=== PATIENT | male | born 1935 | race Caucasian/White ===

== ENCOUNTER 2018-09-02 09:45 | Inpatient (IN) ==
--- NOTE | 2018-09-01 19:36 | MH ---
cc: Gautam Phillips MD DATE OF ADMISSION: 09/02/2018 DIAGNOSIS: End-stage osteoarthritis of the left hip. PROPOSED SURGERY: Total hip replacement arthroplasty of left hip. HISTORY OF PRESENT ILLNESS: The patient had a right total hip replacement arthroplasty done several years ago for osteoarthritis. He also had a partial knee replacement several years ago and has done very well. The patient came to see me recently with unrelenting pain in the left hip and inability to do activities of daily living and the diagnosis was made. His surgery was scheduled for June, but surgery was canceled because of a mass in his chest. He has since been investigated and had a bronchoscopy and biopsy. He has seen the oncologist. He has lung cancer without metastasis. He, however, has refused any chemotherapy at this point, but is going to consider that once he is over the hip replacement. The patient called the office and indicated that he wanted to proceed with hip replacement to get pain relief, after which we will consider treatment options for his lung cancer. I checked with his primary care physician, Dr. Salcedo, and he has no objection to the contemplated procedure. PAST MEDICAL HISTORY: He has COPD from years of smoking. He does not smoke at this time. He quit several years ago. He has high blood pressure. He is on amlodipine and lisinopril. 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 MEDICATIONS: He also takes meloxicam, multivitamins, vitamin E, fluticasone spray and calcium. The patient's preoperative workup was satisfactory. He is now proceeding with total hip replacement arthroplasty of the left hip. The diagnosis, the treatment, the prognosis, the alternatives and the potential risks as well as the complications have all been discussed in detail. Informed consent has been obtained. No guarantees made. PHYSICAL EXAMINATION: GENERAL: Reveals an 82-year-old white male who looks healthy for his age. MUSCULOSKELETAL: He is a stooped over a little bit because of his severe spondylosis of the lumbar spine. He limps on the left leg. The left leg is painful to move and particularly pain on flexion and attempts to do internal rotation. He has palpable pedal pulses in the left foot and he moves his toes well. HEENT: Head is normocephalic. Pupils are reactive to light. Face symmetrical. NEUROLOGIC: He is alert and oriented. CARDIOVASCULAR: Regular rate and rhythm. No murmurs. LUNGS: Show shallow breath sounds, but no rales or rhonchi. ABDOMEN: Soft and supple. MD KINZA Porter/trey , 06:42 PM , 06:51 PM
[2018-09-02] MEDS ORDERED: Sodium Chlor 0.9% Inj 40 ML, Bupivacaine Liposo PF 1.3% Inj 20 ML, Bupivacaine/Epi PF 0... P-ARTICULR ONE ×6 (10:50→11:53)
[2018-09-02] MEDS ORDERED: Chlorhexidine Gluconate 2% 1 Pack (2 Cloths) TOPICAL ONE (11:00)
[2018-09-02] MEDS ORDERED: Vancomycin Inj 1,000 MG in Sodium Chlor 0.9% Inj 250 ML IV.SIG SCH (11:00)
[2018-09-02] MEDS ORDERED: Sodium Chlor 0.9% Inj 500 ML IV.CONT ONE (11:00)
[2018-09-02] MEDS ORDERED: ceFAZolin 2 GM Premix Inj 2 GM/50 ML PIGGYBACK IV.SIG SCH (11:00)
[2018-09-02] MEDS ORDERED: Metoprolol Tartrate 25 MG Tablet PO ONE (11:00)
[2018-09-02] MEDS ORDERED: Tranexamic Acid Inj 656 MG in Sodium Chlor 0.9% Inj 100 ML IV.SIG SCH ×2 (11:00→14:00)
[2018-09-02] MEDS ORDERED: Morphine Inj 4 MG/ML Vial IV.PUSH PRN (14:50)
[2018-09-02] MEDS ORDERED: Post-op Orders (for Pharmacy) OTHER STA (14:50)
[2018-09-02] MEDS ORDERED: Bisacodyl 10 MG Supp RECTAL PRN (14:50)
[2018-09-02] MEDS ORDERED: Aluminum/Magnesium/Simethacone Susp 30 ML UDC PO PRN (14:50)
[2018-09-02] MEDS ORDERED: Vancomycin Inj 1 GM/200 ML PIGGYBACK IV.SIG SCH (15:00)
[2018-09-02] MEDS ORDERED: fentaNYL Citrate Inj 100 MCG/2 ML Ampul ONE (15:09)
[2018-09-02] MEDS: Sod Chloride 0.9% Inj 1,000 ML IV.CONT SCH (15:15)
--- NOTE | 2018-09-02 15:17 | MP ---
cc: Gautam Phillips MD DATE OF OPERATION: 09/02/2018 PREOPERATIVE DIAGNOSIS: Osteoarthritis, left hip. POSTOPERATIVE DIAGNOSIS: Osteoarthritis, left hip. ADDITIONAL DIAGNOSIS: Recent diagnosis of lung cancer. PROCEDURE: Total hip replacement arthroplasty, left hip, using a Biomet components, cup 56 mm with 3 dome screws, stem 16 mm lateral offset, poly high wall 36 mm, head ceramic 36 mm diameter and -6 neck length. SURGEON: Gautam Phillips MD ANESTHESIA: General. TECHNIQUE: After induction of general anesthesia, the patient was placed in left lateral position supported by hip positioners. Strict lateral position was ascertained. Bony prominences were protected and dependent extremities properly protected. The left hip and left lower extremity thoroughly prepped with alcohol and ChloraPrep and draped in routine fashion. A standard lateral incision was made for posterior approach, deepened through subcutaneous tissue and fascia. The fibers of gluteus bryanna were . Self-retaining retractor introduced. Hip was internally rotated and the piriformis was sectioned as close to the greater tuberosity as possible and the short external rotators and capsule were cut in a single layer and extending superiorly to the acetabulum. These were held with sutures. A Steinmann pin was then introduced through the bone superior to the acetabulum after elevating the gluteus minimus and measurement of the length and offset was carried out prior to dislocating the hip. Femoral neck osteotomy carried out at the proper location. Debridement of the joint was carried out to get good exposure of the acetabulum. The acetabulum was now prepared by deepening it as well as excoriating the dense bone to bleeding bone. A 56 mm was impacted in place in 45 degrees abduction, 20 degrees anteversion. Three dome screws were placed. A high wall liner was impacted and placed with the buildup posterior superior. The femur was prepared following routine technique using a cookie cutter followed by a canal finder and broaches to 60 mm broach. A trial reduction carried out with a -3 head, standard offset and this revealed 6 mm of lengthening and loss of close to 13-14 mm of offset. The hip was, however, stable. Hip was dislocated and a high offset 60 mm stem impacted in place in 20 degrees anteversion. A -6 head was placed over it. A ceramic head and final reduction was carried out. We had good stability and good range of motion. Leg lengthening is only about 2 mm. We lost lateral offset of about 7-8 mm. The wound was irrigated with saline solution, followed by reapproximation of the short external rotators to the corner of the gluteus medius tendon and also through a drill hole in the greater trochanter. Good repair was obtained. The fascia closed with #2 Vicryl and #2 Quill and subcutaneous tissue with 2-0 Vicryl and the skin closed with 3-0 subcuticular Quill and a Prineo dressing. The patient was transferred to the recovery room in satisfactory condition with an abduction pillow. The patient tolerated the procedure well. COMPLICATIONS: None. POSTOPERATIVE CONDITION: Satisfactory. PROGNOSIS: For the hip is good. ESTIMATED BLOOD LOSS: About 350-400 mL. The patient bled a lot from the femoral canal, but it was controlled once the stem was implanted. DRAIN: There was no need for a drain. INJECTABLES: A mixture of Exparel and Marcaine and saline was injected all around the skin flaps and the fascia. MD KINZA Porter/elena , 02:43 PM , 02:52 PM
--- NOTE | 2018-09-02 15:37 | P.CONIM ---
History of Present Illness Primary Care Provider: Marcial Velez MD History of Present Illness: Pt is 82 yo with htn and lung adenoca who is brought to [place] for left THALIA. He is seen in PACU and doing well. He is waking up from Anesthesia and his vitals are stable. he only complains of dry mouth. and some fullness at the surgical site. PMH: right thalia left partial knee htn lung ca. untreated. ..adenocarcinoma. ...CT chest Jul 07 3.1cm x 2.9cm right suprahilar mass. smaller 1.5cm adjacent apparent satellite lesion. Pretracheal and hilar adenopathy. possible supraclavicular adenopathy on the right. osteo mandible copd/emphesema multiple levels lumbosacral degenerative disc dz/mild-mod spinal stenosis. SH: no etoh/tob [facility] [place] [facility] Social History Social History Substance History: No History of Abuse and Past History Second Hand Smoke Exposure: No Smoking Status: Never smoker How Often Do You Have a Drink Containing Alcohol: Never Recent Travel in [facility] within the Last 8 Weeks: No Recent Out of Country Travel within the Last 8 Weeks: No Substance Abuse Detail Alcohol: Last Used: 42 YEARS AGO Medications and Allergies Allergies Allergy/AdvReac Type Severity Reaction Status Date / Time alcohol Allergy Severe Confusion, Verified 09/02/18 11:22 ADDICTION Home Medications Medication Instructions Recorded Confirmed Type acetaminophen [Tylenol Extra 500 mg PO HS 07/06/18 09/02/18 History Strength] amlodipine 5 mg PO DAILY 07/06/18 09/02/18 History ascorbic acid (vitamin C) 1,000 mg PO DAILY 07/06/18 09/02/18 History calcium carbonate-vitamin D3 1 tab PO DAILY 07/06/18 09/02/18 History ferrous sulfate 27 mg PO DAILY 07/06/18 09/02/18 History lisinopril-hydrochlorothiazide 1 tab PO DAILY 07/06/18 09/02/18 History melatonin 10 mg PO HS PRN 07/06/18 09/02/18 History multivit with min-folic acid 1 tab PO DAILY 07/06/18 09/02/18 History [Adult One Daily Multivitamin] omega [id number] oil [Extreme 1 cap PO DAILY 07/06/18 09/02/18 History [place]-3] saw palmetto 500 mg PO DAILY 07/06/18 09/02/18 History tramadol 100 mg PO HS 07/06/18 09/02/18 History tramadol 200 mg PO BID 07/06/18 09/02/18 History vitamin E 400 unit PO DAILY 07/06/18 09/02/18 History Active Medications: Active Medications Hydrocodone Bitart/Acetaminophen ([place] 5/325) 2 tab PO Q6H PRN PRN Reason: PAIN SCALE 5 TO 10 Al Hydrox/Mg Hydrox/Simethicone (Mag-Al Plus Susp Liq) 30 ml PO Q6H PRN PRN Reason: INDIGESTION Al Hydroxide/Mg Hydroxide (Milk Of Magnesia Liq) 30 ml PO BID PRN PRN Reason: Mild Constipation Amlodipine Besylate (Norvasc) 5 mg PO DAILY GAURI Bisacodyl (Dulcolax Supp) 10 mg RECTAL DAILY PRN PRN Reason: SEVERE CONSITIPATION Lactated Ringer's (Lr 1000 Ml Inj) 1,000 mls @ 30 mls/hr IV.CONT .Q24H ONE Stop: 09/03/18 10:59 Sodium Chloride (Ns Inj) 500 mls @ 30 mls/hr IV.CONT .[id number] ONE Stop: 09/03/18 03:39 Tranexamic Acid 656 mg/ Sodium (Chloride) 106.56 mls @ 200 mls/hr IV.SIG ONCE [facility] Stop: 09/03/18 10:59 Last Infusion: 09/02/18 13:35 Dose: Infused Tranexamic Acid 656 mg/ Sodium (Chloride) 106.56 mls @ 200 mls/hr IV.SIG ONCE [facility] Stop: 09/03/18 13:59 Vancomycin HCl 1,000 mg/ (Sodium Chloride) 250 mls @ 250 mls/hr IV.SIG [employer] GAURI Stop: 09/05/18 10:50 Last Infusion: 09/02/18 14:00 Dose: Infused Cefazolin Sodium/Dextrose (Ancef 2 Gm Premix Inj) 2 gm in 50 mls @ 100 mls/hr IV.SIG [employer] [facility] Stop: 09/06/18 10:59 Last Infusion: 09/02/18 13:52 Dose: Infused Cefazolin Sodium/Dextrose (Ancef 2 Gm Premix Inj) 2 gm in 50 mls @ 100 mls/hr IV.SIG Q6H [facility] Stop: 09/03/18 03:29 Sodium Chloride (Ns Inj) 1,000 mls @ 100 mls/hr IV.CONT .Q10H GAURI Vancomycin/Sodium Chloride (Vancomycin Inj) 1 gm in 200 mls @ 200 mls/hr IV.SIG Q12H GAURI Stop: 09/03/18 03:59 Acetaminophen (Ofirmev Inj) 1,000 mg in 100 mls @ 400 mls/hr IV.SIG Q12HR GAURI Ketorolac Tromethamine (Toradol Inj) 15 mg IV.PUSH Q6H GAURI Stop: 09/04/18 09:01 Lactulose (Lactulose Liq) 30 ml PO DAILY PRN PRN Reason: SEVERE CONSITIPATION Miscellaneous Information (Misc Post-Op Orders (For Pharmacy)) 0 each OTHER STAT STA Stop: 09/02/18 14:51 Morphine Sulfate (Morphine Inj) 4 mg IV.PUSH Q2H PRN PRN Reason: BREAKTHROUGH PAIN Non-Formulary Medication (Ascorbic Acid (Vitamin C) [Ascorbic Acid (Vitamin C)] ) 1,000 mg PO DAILY [facility] Non-Formulary Medication (Calcium Carbonate-Vitamin D3 [Calcium Carbonate- Vitamin D3]) 1 tab PO DAILY [facility] Non-Formulary Medication (Lisinopril-Hydrochlorothiazide [Lisinopril- Hydrochlorothiazide]) 1 tab PO DAILY GAURI Ondansetron HCl (Zofran Inj) 4 mg IV.PUSH Q6H PRN PRN Reason: NAUSEA OR VOMITING Rivaroxaban (Xarelto) 10 mg PO Q24H [facility] Senna/Docusate Sodium (Kalpana-Colace) 1 tab PO BID [facility] Sennosides (Senokot) 17.2 mg PO BID PRN PRN Reason: Moderate Constipation Sodium Chloride (Ns Flush) 2 ml IV.FLUSH BID [facility] Sodium Chloride (Ns Flush) 2 ml IV.FLUSH PRN PRN PRN Reason: FLUSH AFTER USING IV ACCESS Tramadol HCl (Ultram) 50 mg PO Q4H PRN PRN Reason: PAIN LESS THAN 5 ON SCALE Physical Exam Vital signs: Last Vital Signs Temp 98.1 F 09/02/18 11:10 Pulse 78 09/02/18 11:10 Resp 16 09/02/18 11:10 BP 102/75 09/02/18 11:10 Pulse Ox 96 09/02/18 11:10 Narrative: waking up from anesthesia following commands dry mouth heart reg lung cta abd s/nt ext no edema left hip bandaged. Assessment and Plan Assessment (1) S/P total hip arthroplasty: Code(s): Z96.649 - Presence of unspecified artificial hip joint Status: Acute (2) HTN (hypertension): Code(s): I10 - Essential (primary) hypertension Status: Chronic (3) Lung cancer: Code(s): C34.90 - Malignant neoplasm of unspecified part of unspecified bronchus or lung Status: Chronic Plan 1. Left THALIA for OA. 2. Lung ca. untreated ..adenocarcinoma. ...CT chest Jul 07.... 3.1cm x 2.9cm right suprahilar mass. smaller 1.5cm adjacent apparent satellite lesion. Pretracheal and hilar adenopathy. possible supraclavicular adenopathy on the right. 3. Htn dvt prophylaxis. xarelto. PT daily. plan [facility] Spirometer. Cont home bp meds as tolerated. Monitor bmp in AM and signs of dehydration. Pain control prn.
--- NOTE | 2018-09-02 15:42 | XR ---
EXAM DATE: 09/02/2018 3:37 PM EST AGE/SEX: 82 years / Male INDICATIONS: Status post total left hip replacement. CLINICAL DATA: This is the patient's initial encounter. Patient reports that signs and symptoms have been present for 1 day and indicates a pain score of 0/10. MEDICAL/SURGICAL HISTORY: None. . Right hip ORIF. COMPARISON: No prior exams available for comparison. FINDINGS: The patient is status post a total hip arthroplasty. Prosthesis is well-seated. Alignment is anatomic . A fracture is not appreciated. CONCLUSION: Anatomic alignment. Dick Warner MD FACR Electronically signed by: Dick Warner MD 09/02/2018 3:41 PM EST
[2018-09-02] MEDS ORDERED: Ketorolac Inj 30 MG/ML (IVP) Vial ONE (15:56)
[2018-09-02] MEDS: Ketorolac Inj 30 MG/ML (IVP) Vial IV.PUSH SCH ×2 (15:58→21:42)
[2018-09-02] MEDS: Senna/Docusate Sodium 8.6/50 MG Tablet PO SCH (21:41)
[2018-09-02] MEDS: ceFAZolin 2 GM Premix Inj 2 GM/50 ML PIGGYBACK IV.SIG SCH (21:46)
[2018-09-03] MEDS: Sod Chloride 0.9% Inj 1,000 ML IV.CONT SCH ×2 (00:20→10:20)
[2018-09-03] MEDS: Vancomycin Inj 1,000 MG in Sodium Chlor 0.9% Inj 250 ML IV.SIG SCH ×2 (00:20→14:33)
[2018-09-03] MEDS: Ketorolac Inj 30 MG/ML (IVP) Vial IV.PUSH SCH ×4 (03:26→22:32)
[2018-09-03] MEDS: ceFAZolin 2 GM Premix Inj 2 GM/50 ML PIGGYBACK IV.SIG SCH ×2 (03:26→08:55)
[2018-09-03 05:27] LABS: Hematocrit 30.4 % (39.0-51.0); Hemoglobin 10.6 gm/dL (13.0-17.0)
[2018-09-03 05:50] LABS: Anion Gap 4 meq/L (5-15); Blood Urea Nitrogen 14 mg/dL (7-18); Calcium 7.9 mg/dL (8.5-10.1); Carbon Dioxide 29.5 meq/L (21.0-32.0); Chloride 103 meq/L (98-107); Glomerular Filtration Rate Greater Than 89 mL/min (>89); Glucose,Random 126 mg/dL (74-106); Potassium 5.1 meq/L (3.5-5.1); Sodium 136 meq/L (136-145)
--- NOTE | 2018-09-03 07:20 | P.PNOP ---
Subjective Interval history: doing OK, not much pain.Urinating OK Physical Exam Vital signs: Vital Signs 09/02/18 11:10 09/02/18 15:01 09/02/18 16:30 Temperature 98.1 F 97.8 F Pulse Rate 78 92 H 81 Respiratory Rate 16 18 26 H Blood Pressure 102/75 133/76 133/70 Pulse Oximetry 96 97 100 09/02/18 16:45 09/02/18 17:00 09/02/18 17:30 Temperature Pulse Rate 72 72 98 H Respiratory Rate 22 20 22 Blood Pressure 130/71 144/67 H 124/65 Pulse Oximetry 100 100 99 09/02/18 18:00 09/02/18 20:00 09/03/18 00:00 Temperature 98.0 F 98.1 F 97.3 F L Pulse Rate 90 80 73 Respiratory Rate 20 18 18 Blood Pressure 150/96 H 113/55 L 104/58 L Pulse Oximetry 96 96 96 09/03/18 04:00 Temperature 98.2 F Pulse Rate 73 Respiratory Rate 20 Blood Pressure 100/58 L Pulse Oximetry 93 L Intake & Output 09/02/18 09/03/18 09/03/18 18:59 06:59 18:59 Intake Total 2886.56 / 2886.56 1830 / 1830 Output Total 700 / 700 650 / 650 Balance 2186.56 / 2186.56 1180 / 1180 Weight 65.6 kg 65.7 kg Intake: IV 406.56 / 406.56 1150 / 1150 NS Inj 1,000 ML @ 100 mls/hr IV 1000 / 1000 .CONT .Q10H GAURI Rx#:[id number] Ofirmev Inj 1,000 mg In 100 ml 100 / 100 @ 400 mls/hr IV.SIG Q12HR GAURI Rx#:[id number] Cyklokapron Inj 656 MG In NS 106.56 / 106.56 Inj 100 ML @ 200 mls/hr IV.SIG ONCE GAURI Rx#:[id number] Vancomycin Inj 1,000 MG In NS 250 / 250 Inj 250 ML @ 250 mls/hr IV.SIG PERIPHERAL VASCULAR TECH GAURI Rx#:[id number] Ancef 2 GM Premix Inj 2 gm In 50 / 50 50 / 50 50 ml @ 100 mls/hr IV.SIG Q6H GAURI Rx#:[id number] Oral 480 / 480 680 / 680 Anesthesia Amount 1999 Output: Urine 200 / 200 650 / 650 Estimated Blood Loss 500 / 500 Other: Date of Last Bowel Movement 09/02/18 Weight On Admission 65.6 kg Narrative: A,A, and O In bed, comfortable. Has abduction pillowon. Moves toes well. dressings dry. Results - Labs CBC & Chem 7: 09/03/18 05:03 09/03/18 05:03 Laboratory Results - last 24 hr 09/02/18 09/03/18 09/03/18 10:32 05:03 05:03 Hgb 10.6 L Hct 30.4 L Sodium 136 Potassium 5.1 Chloride 103 Carbon Dioxide 29.5 Anion Gap 4 L BUN 14 Creatinine 0.80 Estimated GFR Greater than 89 Random Glucose 126 H Calcium 7.9 L Blood Type A Positive Blood Type Recheck Required Antibody Screen Negative - Imaging Impressions Hip X-Ray 09/02/18 14:46 CONCLUSION: Anatomic alignment. Dick Warner MD FACR Assessment and Plan - Ortho Post Op Day # 1 - Assessment and Plan To SNF tomorrow
[2018-09-03] MEDS: Calcium/Vitamin D 250/125 MG Tablet PO SCH (08:54)
[2018-09-03] MEDS: Ascorbic Acid 500 MG Tablet PO SCH (08:54)
[2018-09-03] MEDS: Senna/Docusate Sodium 8.6/50 MG Tablet PO SCH ×2 (08:55→22:32)
[2018-09-03] MEDS ORDERED: CALCIUM CARBONATE VITAMIN D3 PO SCH (09:00)
[2018-09-03] MEDS ORDERED: Lisinopril 10 MG Tablet PO SCH (09:00)
[2018-09-03] MEDS ORDERED: Non-Formulary Drug (Lisinopril-Hydrochlorothiazide [Lisinopril-Hydrochlorothiazide] 1 TAB) PO SCH (09:00)
[2018-09-03] MEDS ORDERED: amLODIPine 5 MG Tablet PO SCH (09:00)
[2018-09-03] MEDS ORDERED: Rivaroxaban 10 MG Tablet PO SCH (14:00)
[2018-09-04] MEDS: Ketorolac Inj 30 MG/ML (IVP) Vial IV.PUSH SCH ×2 (03:09→10:53)
[2018-09-04] MEDS: Sod Chloride 0.9% Inj 1,000 ML IV.CONT SCH ×2 (03:51→08:44)
--- NOTE | 2018-09-04 10:21 | P.PNOP ---
Subjective Interval history: some pain, otherwise ok. walked the [place] this morning Physical Exam Vital signs: Vital Signs 09/03/18 12:00 09/03/18 16:00 09/03/18 19:46 Temperature 97.8 F 97.7 F 98.4 F Pulse Rate 92 H 78 79 Respiratory Rate 18 17 17 Blood Pressure 103/55 L 100/57 L 107/60 Pulse Oximetry 96 96 94 L 09/03/18 22:46 09/04/18 00:25 09/04/18 02:30 Temperature 98.2 F Pulse Rate 77 Respiratory Rate 17 16 17 Blood Pressure 122/62 Pulse Oximetry 95 09/04/18 04:39 09/04/18 07:45 Temperature 97.5 F L 97.8 F Pulse Rate 71 111 H Respiratory Rate 16 18 Blood Pressure 143/65 H 118/73 Pulse Oximetry 92 L 95 Intake & Output 09/03/18 09/04/18 09/04/18 18:59 06:59 18:59 Intake Total 2420 / 2420 1600 / 1600 Output Total 1200 / 1200 250 / 250 400 / 400 Balance 1220 / 1220 1350 / 1350 -400 / -400 Weight 71.9 kg Intake: IV 1100 / 1100 1100 / 1100 NS Inj 1,000 ML @ 100 mls/hr IV 1000 / 1000 1000 / 1000 .CONT .Q10H GAURI Rx#:[id number] Ofirmev Inj 1,000 mg In 100 ml 100 / 100 100 / 100 @ 400 mls/hr IV.SIG Q12HR GAURI Rx#:[id number] Oral 1320 / 1320 500 / 500 Output: Urine 1200 / 1200 250 / 250 400 / 400 Stool 0 / 0 Other: Date of Last Bowel Movement 09/02/18 09/02/18 # Bowel Movements 0 Narrative: A,A, and O. Sitting up. comfortable, legs in good orientation. [place] dressings dry. Results - Labs CBC & Chem 7: 09/03/18 05:03 09/03/18 05:03 Assessment and Plan - Assessment and Plan To SNF tomorrow - Attending Attestation Attending Attestation: To SNF today. orders written
[2018-09-04] MEDS: Calcium/Vitamin D 250/125 MG Tablet PO SCH (10:54)
[2018-09-04] MEDS: Ascorbic Acid 500 MG Tablet PO SCH (10:55)
[2018-09-04] MEDS: Senna/Docusate Sodium 8.6/50 MG Tablet PO SCH (10:55)
[2018-09-04] MEDS ORDERED: Acetaminophen 325 MG Tablet PO SCH (21:00)
--- NOTE | 2018-09-04 22:07 | MD ---
cc: Gautam Phillips MD DATE OF DISCHARGE: 09/04/2018 ADMITTING DIAGNOSIS: End stage osteoarthritis, left hip. ADDITIONAL DIAGNOSES: 1. Lung cancer. 2. Chronic obstructive pulmonary disease. 3. Hypertension. DISCHARGE DIAGNOSES: 1. End stage osteoarthritis, left hip. 2. Lung cancer. 3. Chronic obstructive pulmonary disease. 4. Hypertension. HISTORY: Consisted of a chronic problem with the left hip with recent exacerbation and inability to do activities of daily living without a lot of pain preop. Initial preoperative evaluation revealed abnormal chest x-ray, which was investigated and is now being diagnosed as having lung cancer. Decisions on lung cancer are pending, but the patient insisted that he wanted to proceed with hip replacement because of the severe pain prior to making decisions on his lung cancer treatment. He has been seen by flow floor attendant and oncologist already. After appropriate medical clearance, the patient was brought to the hospital and had surgery on the day of admission. Surgery was uneventful. Postoperative course was uneventful. Preoperative and postoperative x-rays and labs were all satisfactory. He is now discharged in stable condition to a snf facility with orders to continue his pain medications as needed bein. Hydrocodone 5/325 one to two q.i.d. p.r.n. for severe pain 2. Tramadol 50 mg b.i.d. p.r.n. for mild pain. He will have physical therapy and occupational therapy. He will have appropriate wound care. He will also be on Xarelto 10 mg daily for prophylactic anticoagulation. DISCHARGE CONDITION: Stable. PROGNOSIS: Guarded because of the lung cancer. MD KINZA Porter/steven , 10:24 AM , 10:31 AM
== END 2018-09-04 15:19 ==
LOC: HSDI 09:45 → N06 18:40
PROVIDERS: ADMIT Orthopaedic Surgery; ATTEND Orthopaedic Surgery
DX: J44.9 Chronic obstructive pulmonary disease, unspecified; M48.061 Spinal stenosis, lumbar region without neurogenic claudication; M47.816 Spondylosis without myelopathy or radiculopathy, lumbar region; Z96.659 Presence of unspecified artificial knee joint; M16.12 Unilateral primary osteoarthritis, left hip; M51.37 Other intervertebral disc degeneration, lumbosacral region; I10 Essential (primary) hypertension; C34.90 Malignant neoplasm of unspecified part of unspecified bronchus or lung; Z96.641 Presence of right artificial hip joint; Z87.891 Personal history of nicotine dependence